=== PATIENT | female | born 1930 | race Caucasian/White ===

== ENCOUNTER 2016-12-20 05:54 | Outpatient (CLI) | payer MEDICARE, OTHER ==
[~2016-12-20] VITALS: Ht 162.6 cm; Wt 81.2 kg
[2016-12-20] VITALS (13 sets, daily range): BP systolic 128–156; BP diastolic 60–81; PULSE 60–86; RESP 12–34; TEMP 97.9; O2SAT 91–96; Ht 162.6 cm; Wt 81.2 kg
[~2016-12-20 05:54] MED LIST: ASCO-324 PO; BIOT1TAB16 PO; CHOL100055 PO; CYAN250010 PO; FURO20TA4 PO; LOSA1TAB96 PO; POTA20TA87 PO; UBID100C10 PO; WARF5TAB67 PO
[2016-12-20] MEDS ORDERED: DiphenhydrAMINE 50 MG/ML INJECTION IV ONE (06:00)
[2016-12-20] MEDS ORDERED: NORMAL SALINE 1,000 ML IV SCH (06:00)
--- NOTE | 2016-12-20 06:05 | NUR ---
Arrival Pt arrived to floor at this time.
[2016-12-20] MEDS ORDERED: LABE100T PO (06:37)
[2016-12-20 06:47] LABS: BASOPHILS % (AUTO) 0.5 % (0-2); EOSINOPHILS # (AUTO) 0.2 T/MM3 (0-0.5); EOSINOPHILS % (AUTO) 3.1 % (0-4); HCT - HEMATOCRIT 36.2 % (36-46); HGB - HEMOGLOBIN 12.1 GM/DL (12-16); IMMATURE GRANULOCYTE # (AUTO) 0.01 T/MM3 (0.00-0.03); IMMATURE GRANULOCYTE % (AUTO) 0.2 % (0.0-0.5); LYMPHOCYTES # (AUTO) 2.2 T/MM3 (1-4.8); MEAN CORPUSCULAR HGB 31.8 UUG (26-34); MEAN CORPUSCULAR HGB CONC(MCHC 33.4 GM/DL (31-37); MEAN CORPUSCULAR VOLUME 95.3 UM3 (80-100); MEAN PLATELET VOLUME 9.2 UM3 (9.4-12.4); MONOCYTES # (AUTO) 0.5 T/MM3 (0-0.8); NEUTROPHILS #(AUTO)-ABSOLUTE 3.5 T/MM3 (1.8-7.7); NEUTROPHILS % (AUTO) 54.2 % (33-66); WBC - WHITE BLOOD COUNT 6.5 T/MM3 (4.5-11.0)
[2016-12-20 06:56] LABS: ANION GAP 15 MEQ/L (5-15); BUN/CREATININE RATIO 30 RATIO (6-26); CALCIUM 9.8 MG/DL (8.4-10.2); CHLORIDE 103 MEQ/L (98-107); CO2 - CARBON DIOXIDE 24 MEQ/L (22-30); GLOMERULAR FILTRATION RATE 53; GLUCOSE 96 MG/DL (65-110); POTASSIUM 3.9 MEQ/L (3.6-5); SODIUM 142 MEQ/L (134-144)
[2016-12-20 07:13] LABS: INR 2.24 (0.76-1.04); PROTHROMBIN TIME 24.4 SEC (9.31-12.49)
[2016-12-20] MEDS ORDERED: HEPARIN 1,000units in NS 500ml BAG IV ONE (07:13)
[2016-12-20] MEDS ORDERED: IOHEXOL 350mg/ml 200ml BOTTLE ONE (07:13)
[2016-12-20] MEDS ORDERED: LIDOCAINE 1% (10mg/ml) 30ml SDV ONE (07:13)
--- NOTE | 2016-12-20 07:16 | NUR ---
Notified labor conciliator notified tender labor of INR greater than 1.5. No new orders at this time.
[2016-12-20] MEDS ORDERED: MIDAZOLAM 2mg/2ml INJECTION ONE (07:34)
[2016-12-20] MEDS ORDERED: VERAPAMIL 5mg/2ml INJECTION IV ONE (07:34)
[2016-12-20] MEDS ORDERED: FENTANYL 100mcg/2ml INJECTION ONE (07:34)
[2016-12-20] MEDS ORDERED: NITROGLYCERIN 50mg/10ml INJECTION IV ONE (07:34)
[2016-12-20] MEDS ORDERED: SALINE FLUSH 10ml SYRINGE ONE (07:35)
--- NOTE | 2016-12-20 07:50 | NUR ---
Left unit for heart cath
[2016-12-20] MEDS ORDERED: MAG-AL + SIM LIQUID 30 ML UDC PO PRN (08:45)
[2016-12-20] MEDS ORDERED: BISACODYL 10 MG SUPPOSITORY RECTALLY PRN (08:45)
[2016-12-20] MEDS ORDERED: ONDANSETRON 4mg/2ml INJECTION IV PRN (08:45)
[2016-12-20] MEDS ORDERED: MILK OF MAGNESIA 30 ML SUSP PO PRN (08:45)
[2016-12-20] MEDS ORDERED: ACETAMINOPHEN 325 MG TABLET PO PRN (08:45)
[2016-12-20] MEDS ORDERED: BISACODYL 5 MG E.C. TABLET PO PRN (08:45)
[2016-12-20] MEDS ORDERED: LORAZEPAM 0.5 MG TABLET PO PRN (08:45)
[2016-12-20] MEDS ORDERED: METOCLOPRAMIDE 10mg/2ml INJECTION IV PRN (08:45)
[2016-12-20] MEDS ORDERED: ATROPINE 1 MG/ML VIAL IV PRN (08:45)
[2016-12-20] MEDS ORDERED: LORAZEPAM 2 MG/ML INJECTION IV PRN (08:45)
[2016-12-20] MEDS ORDERED: NITROGLYCERIN 0.4 MG SUBLINGUAL TABLET SL PRN (08:45)
[2016-12-20] MEDS ORDERED: HYDROCODONE/APAP 5 mg/325 mg TABLET PO PRN (08:45)
[2016-12-20] MEDS ORDERED: PROMETHAZINE 25 MG INJECTION IV PRN (08:45)
[2016-12-20] MEDS ORDERED: MORPHINE SULFATE 4 MG SYRINGE IV PRN ×2 (08:45)
--- NOTE | 2016-12-20 10:34 | NUR ---
CM CM IN TO VISIT PATIENT, SHE IS A&O. SON IS AT THE BEDSIDE. PATIENT PLANS TO RETURN HOME, DENIES DISCHARGE NEEDS STATING HER SON LIVES NEXT DOOR. CM CONTACT INFORMATION GIVEN. MORGAN MOLINA. Addendum: 12/20/16 at 1035 by BREANN SCHAEFER RN Amended: Links added.
--- NOTE | 2016-12-20 10:37 | NUR ---
CM LACE SCORE IS 1, NO FURTHER FOLLOW UP IS INDICATED.
--- NOTE | 2016-12-20 11:41 | NUR ---
Discharge Pt discharged home in good condition. Discharge instructions were provided to pt and pt's son. Instructions included, but not limited to: follow up appointments, s/s to report, incision care, and activity restrictions. Both verbalized understanding. IV site DC'd and TR band removed. dressings placed over both sites. Pt was wheeled to ER exit with all personal belongings including home medications.
--- NOTE | 2016-12-20 12:01 | CVPROF ---
DATE OF PROCEDURE December 20, 2016 REFERRING PHYSICIAN Marlon Casillas MD INDICATIONS The patient is an 86-year-old lady with abnormal stress test and hypertension requiring multiple medications and was referred for further evaluation by cardiac catheterization and renal evaluation. INFORMED CONSENT Informed consent was obtained after explaining the procedure and the potential risks to the patient who agreed to proceed with the procedure. PROCEDURE 1. Left heart catheterization. 2. Coronary angiography. 3. Left ventriculography. 4. Abdominal aortography by placing catheter in abdominal aorta across the renal arteries. TECHNIQUE She was prepped and draped in the usual sterile techniques. 1% lidocaine was used for local anesthesia. Conscious sedation was performed using Versed and fentanyl. 1% lidocaine was used for local anesthesia. Using modified Seldinger technique, arterial access was obtained into the right radial artery with placement of a 6-Stateless arterial sheath. 3000 units of heparin, 2.5 mg of verapamil, and 300 mcg of nitroglycerin were given through the arterial sheath. LEFT VENTRICULOGRAPHY Left ventriculography in single-plane HUNT shallow projection showed mild anterior hypokinesia with ejection fraction of about 50-55% with no mitral regurgitation or gradient across the aortic valve. LVEDP was about 17. CORONARY ANGIOGRAPHY Left main, left anterior descending and diagonals, left circumflex and marginals, and right coronary artery were all free of significant lesions with minor irregularities with right dominant system. Abdominal aortography showed mild irregularities of the abdominal aorta with no significant lesions or aneurysms. There were single renal arteries to each kidney which were patent with about 20% stenosis of the right renal ostium. The patient tolerated the procedure well with no complications. IMPRESSION 1. No hemodynamically significant coronary obstructive lesions except for minor irregularities. 2. Mild anterior hypokinesia with ejection fraction of about 50-55%. 3. Mild right renal artery ostial stenosis. MTDD
--- NOTE | 2016-12-22 11:36 | NUR ---
ATTEMPTED [facility] FOLLOW UP PHONE CALL #1, NO ANSWER, LEFT MESSAGE TO RETURN CALL TO CM.
== END 2016-12-20 11:33 | disposition home or self-care (01) ==
LOC: CATH 05:54 → SRG 07:03 → CATH 11:33
PROVIDERS: ATTEND Internal Medicine Cardiovascular Disease
DX: I77.89 Other specified disorders of arteries and arterioles (principal); I70.1 Atherosclerosis of renal artery; R94.39 Abnormal result of other cardiovascular function study; I10 Essential (primary) hypertension; I48.0 Paroxysmal atrial fibrillation; I35.1 Nonrheumatic aortic (valve) insufficiency; I27.2 Other secondary pulmonary hypertension; I65.23 Occlusion and stenosis of bilateral carotid arteries; Z79.01 Long term (current) use of anticoagulants; Z79.899 Other long term (current) drug therapy
CPT/HCPCS: 80048; 85025; 85610; 93005; 93458; C1769; C1893; J1644; J2250; J3010; J3490; J7030; Q9967

== ENCOUNTER → 2017-01-20 | Outpatient (CLI) | payer MEDICARE, OTHER ==
[~2017-01-20] VITALS: Ht 160 cm; Wt 83.9 kg
[~2017-01-20] MED LIST changes: +LABE100T PO
== END ==
LOC: RC 10:14
PROVIDERS: ATTEND Family Medicine
DX: R42 Dizziness and giddiness (principal); J98.8 Other specified respiratory disorders
CPT/HCPCS: 94060; 94726